=== PATIENT | female | born 1980 | race American Indian/Alaskan Native ===

== ENCOUNTER 2018-10-13 13:38 | Emergency (ER) | payer MEDICAID, OTHER ==
[~2018-10-13] VITALS: Ht 167.6 cm; Wt 80.0 kg
[~2018-10-13 13:38] MED LIST: ORPH100T2 PO
[2018-10-13 14:15] LABS: CLARITY,URINE CLOUDY (Clear); COLOR,URINE YELLOW (Yellow); GLUCOSE, URINE NEGATIVE (Neg); KETONES,URINE NEGATIVE (Neg); LEUKOCYTE ESTERASE ,URINE TRACE (Neg); NITRITES, URINE POSITIVE (Neg); OCCULT BLOOD,URINE SMALL (Neg); PROTEIN,URINE TRACE mg/dl (Neg); UA COLLECTION TYPE CLN CATCH MIDSTREAM
[2018-10-13 14:17] LABS: URINE HCG NEGATIVE (NEG)
[2018-10-13 14:22] LABS: HYALINE CASTS 0-3 /LPF (NEGATIVE); SQUAMOUS EPITHELIAL CELL,UR MODERATE /LPF (FEW)
[2018-10-13 14:23] LABS: BACTERIA,URINE 4+ /HPF (Neg); RBC,URINE 0-2 /HPF (0-2); WBC,URINE 20-30 /HPF (0-4)
[2018-10-13 14:41] VITALS: BP 110/86
[2018-10-13 15:29] LABS: BASOPHILS % (AUTO) 0.4 % (0-1); EOSINOPHILS # (AUTO) 0.1 X10'3 (0-0.9); EOSINOPHILS % (AUTO) 1.9 % (0-6); HEMATOCRIT 46.7 % (35.0-45.0); HEMOGLOBIN 15.7 g/dl (12.0-16.0); LYMPHOCYTES # (AUTO) 1.4 X10'3 (1.1-4.8); LYMPHOCYTES % (AUTO) 20.6 % (21-51); MEAN CORPUSCULAR HEMOGLOBIN 31.6 PG (27.0-31.0); MEAN CORPUSCULAR HGB CONC 33.6 g/dL (33.0-36.5); MEAN CORPUSCULAR VOLUME 94.1 FL (78-98); MEAN PLATELET VOLUME 7.7 FL (7.4-10.4); MONOCYTES # (AUTO) 0.4 X10'3 (0-0.9); NEUTROPHILS % (AUTO) 72.1 % (42-75); PLATELET COUNT 235 X10'3 (140-440); RED BLOOD COUNT 4.97 X10'6 (4.20-5.60); RED CELL DISTRIBUTION WIDTH 12.8 % (11.5-14.5)
[2018-10-13 15:54] LABS: ALANINE AMINOTRANSFERASE 67 U/L (12-78); ALBUMIN 3.9 G/DL (3.4-5.0); ALBUMIN/GLOBULIN RATIO 0.9 (1.1-1.5); ALKALINE PHOSPHATASE 81 IU/L (46-116); ANION GAP 6 (8-16); ASPARTATE AMINO TRANSFERASE 26 U/L (10-37); BILIRUBIN,TOTAL 0.4 MG/DL (0.1-1.0); BLOOD UREA NITROGEN 17 MG/DL (7-18); BUN/CREATININE RATIO 17.3 (6.6-38.0); CALCIUM 9.5 MG/DL (8.5-10.1); CHLORIDE 103 MMOL/L (99-107); CREATININE 0.98 MG/DL (0.40-0.90); GLUCOSE 93 MG/DL (70-104); POTASSIUM 3.7 MMOL/L (3.5-5.1); SODIUM 137 MMOL/L (135-145); TOTAL CARBON DIOXIDE 27.6 MMOL/L (24-32); TOTAL PROTEIN 8.3 G/DL (6.4-8.2); eGFR 64 ML/MIN
[2018-10-13] MEDS ORDERED: SULF1TAB49 PO (16:05)
--- NOTE | 2018-10-13 16:36 | NUR ---
ULTRASOUND TO PT ROOM, PT LEFT A NOTE SAID SHE WENT TO BUS STOP TO SMOKE. PT NOT AT BUS STOP. TRIED TO CALL PHONE NUMBER, EM REPORTS NUMBER NOT WORKING.
== END 2018-10-13 16:43 | disposition left against medical advice (07) ==
LOC: ER 13:39
DX: N93.9 Abnormal uterine and vaginal bleeding, unspecified (principal); N39.0 Urinary tract infection, site not specified; Z88.0 Allergy status to penicillin; Z79.899 Other long term (current) drug therapy
CPT/HCPCS: 36415; 80053; 81001; 81025; 85025; 87077; 87088; 87186; 99284

== ENCOUNTER 2018-10-25 14:11 | Emergency (ER) | payer MEDICAID, OTHER ==
[~2018-10-25] VITALS: Ht 167.6 cm; Wt 68.0 kg
[2018-10-25 14:13] VITALS: BP 135/71
[2018-10-25] MEDS ORDERED: ketorolac trometh inj. 60 MG/2 ML VIAL IM ONE (14:25)
[2018-10-25] MEDS ORDERED: NAPR-56 PO (14:26)
[2018-10-25] MEDS ORDERED: CEPH-571 PO (14:26)
== END 2018-10-25 14:39 | disposition home or self-care (01) ==
LOC: ER 14:12
DX: S70.362A Insect bite (nonvenomous), left thigh, initial encounter (principal); L03.116 Cellulitis of left lower limb; M54.6 Pain in thoracic spine; F17.200 Nicotine dependence, unspecified, uncomplicated; Z88.0 Allergy status to penicillin; Z79.2 Long term (current) use of antibiotics; Z79.899 Other long term (current) drug therapy; W57.XXXA Bitten or stung by nonvenomous insect and other nonvenomous arthropods, initial encounter; Y93.89 Activity, other specified; Y92.89 Other specified places as the place of occurrence of the external cause; Y99.8 Other external cause status
CPT/HCPCS: 96372; 99283; J1885

== ENCOUNTER 2018-11-03 16:51 | Emergency (ER) | payer SELFPAY ==
[~2018-11-03] VITALS: Ht 167.6 cm; Wt 77.0 kg
[~2018-11-03 16:51] MED LIST changes: +CEPH-571 PO; +NAPR-56 PO
[2018-11-03 16:56] VITALS: BP 133/76
[2018-11-03 17:52] LABS: CLARITY,URINE CLOUDY (Clear); COLOR,URINE YELLOW (Yellow); GLUCOSE, URINE NEGATIVE (Neg); KETONES,URINE NEGATIVE (Neg); LEUKOCYTE ESTERASE ,URINE NEGATIVE (Neg); NITRITES, URINE NEGATIVE (Neg); OCCULT BLOOD,URINE NEGATIVE (Neg); PH,URINE 5.5 (4.8-8.0); PROTEIN,URINE NEGATIVE (Neg); URINE HCG NEGATIVE (NEG)
[2018-11-03 17:53] LABS: UA COLLECTION TYPE CLN CATCH MIDSTREAM
[2018-11-03 18:08] LABS: BACTERIA,URINE 1+ /HPF (Neg); HYALINE CASTS 0-3 /LPF (NEGATIVE); RBC,URINE 0-2 /HPF (0-2); SQUAMOUS EPITHELIAL CELL,UR MODERATE /LPF (FEW)
== END 2018-11-03 18:23 | disposition left against medical advice (07) ==
LOC: ER 16:52
DX: R30.0 Dysuria (principal); Z88.0 Allergy status to penicillin
CPT/HCPCS: 81001; 81025; 87088; 99283

== ENCOUNTER 2019-03-26 13:41 | Emergency (ER) | payer OTHER ==
[~2019-03-26] VITALS: Ht 167.6 cm; Wt 80.0 kg
[~2019-03-26 13:41] MED LIST changes: -NAPR-56 PO
[2019-03-26 13:52] VITALS: BP 159/61
[2019-03-26 14:19] LABS: BASOPHILS # (AUTO) 0.1 X10'3 (0-0.2); BASOPHILS % (AUTO) 1.5 % (0-1); EOSINOPHILS # (AUTO) 0.1 X10'3 (0-0.9); EOSINOPHILS % (AUTO) 2.5 % (0-6); HEMATOCRIT 45.8 % (35.0-45.0); HEMOGLOBIN 15.4 g/dl (12.0-16.0); LYMPHOCYTES # (AUTO) 1.9 X10'3 (1.1-4.8); LYMPHOCYTES % (AUTO) 31.6 % (21-51); MEAN CORPUSCULAR HEMOGLOBIN 30.9 PG (27.0-31.0); MEAN CORPUSCULAR HGB CONC 33.6 g/dL (33.0-36.5); MEAN CORPUSCULAR VOLUME 91.8 FL (78-98); MEAN PLATELET VOLUME 7.8 FL (7.4-10.4); MONOCYTES # (AUTO) 0.4 X10'3 (0-0.9); MONOCYTES % (AUTO) 6.7 % (2-12); NEUTROPHILS # (AUTO) 3.4 X10'3 (1.8-7.7); NEUTROPHILS % (AUTO) 57.7 % (42-75); PLATELET COUNT 248 X10'3 (140-440); RED BLOOD COUNT 4.98 X10'6 (4.20-5.60); RED CELL DISTRIBUTION WIDTH 12.6 % (11.5-14.5); WHITE BLOOD COUNT 5.9 X10'3 (4.5-11.0)
[2019-03-26 14:43] LABS: ALANINE AMINOTRANSFERASE 73 U/L (12-78); ALBUMIN 3.9 G/DL (3.4-5.0); ALKALINE PHOSPHATASE 82 IU/L (46-116); ANION GAP 8 (8-16); ASPARTATE AMINO TRANSFERASE 27 U/L (10-37); BILIRUBIN,TOTAL 0.4 MG/DL (0.1-1.0); BLOOD UREA NITROGEN 17 MG/DL (7-18); BUN/CREATININE RATIO 17.7 (6.6-38.0); CALCIUM 9.1 MG/DL (8.5-10.1); CHLORIDE 105 MMOL/L (99-107); CREATININE 0.96 MG/DL (0.40-0.90); GLUCOSE 127 MG/DL (70-104); LIPASE 99 U/L (73-393); POTASSIUM 3.7 MMOL/L (3.5-5.1); SODIUM 140 MMOL/L (135-145); TOTAL CARBON DIOXIDE 26.6 MMOL/L (24-32); TOTAL PROTEIN 7.8 G/DL (6.4-8.2); eGFR 65 ML/MIN
[2019-03-26] MEDS ORDERED: ketorolac tromethamine 15mg/ml inj. IM ONE (15:30)
[2019-03-26] MEDS ORDERED: CYCL-1 PO (15:33)
[2019-03-26] MEDS ORDERED: ONDA4TAB6 PO (15:33)
[2019-03-26] MEDS ORDERED: IBUP-1984 PO (15:33)
== END 2019-03-26 16:00 | disposition home or self-care (01) ==
LOC: ER 13:41
DX: M54.5 Low back pain (principal); M54.6 Pain in thoracic spine; R10.84 Generalized abdominal pain; G89.29 Other chronic pain; F15.90 Other stimulant use, unspecified, uncomplicated; Z88.0 Allergy status to penicillin; W18.09XA Striking against other object with subsequent fall, initial encounter; Y93.89 Activity, other specified; Y92.89 Other specified places as the place of occurrence of the external cause; Y99.9 Unspecified external cause status
CPT/HCPCS: 36415; 80053; 83690; 85025; 96372; 99283; J1885

== ENCOUNTER 2020-03-30 02:44 | Emergency (ER) | payer SELFPAY ==
[~2020-03-30 02:44] MED LIST changes: +CYCL-1 PO; +ONDA4TAB6 PO
== END 2020-03-30 03:18 | disposition left against medical advice (07) ==
LOC: ER 02:44
DX: Z53.21 Procedure and treatment not carried out due to patient leaving prior to being seen by health care provider (principal)

== ENCOUNTER 2020-10-28 22:05 | Emergency (ER) | payer OTHER ==
[~2020-10-28] VITALS: Ht 167.6 cm; Wt 75.0 kg
[2020-10-28 22:20] VITALS: BP 155/97
[2020-10-28] MEDS ORDERED: ALBU18HF2 INH (23:23)
[2020-10-28] MEDS ORDERED: DOXY100C43 PO (23:23)
[2020-10-28] MEDS ORDERED: PRED20TA PO (23:23)
--- NOTE | 2020-10-29 00:42 | NUR ---
pt seen and treatedby prior to nurse assessment and medical hx . pt discharged home , when attempted to discharge pt . pt not in rap not in lobby not in parking lot checked three timnes pt left without dischrge orders
== END 2020-10-29 00:58 | disposition home or self-care (01) ==
LOC: ER 22:06
DX: J20.9 Acute bronchitis, unspecified (principal); J06.9 Acute upper respiratory infection, unspecified; I10 Essential (primary) hypertension; J45.909 Unspecified asthma, uncomplicated; F17.210 Nicotine dependence, cigarettes, uncomplicated; F15.90 Other stimulant use, unspecified, uncomplicated; Z20.822 Contact with and (suspected) exposure to COVID-19; Z86.19 Personal history of other infectious and parasitic diseases; Z88.0 Allergy status to penicillin
CPT/HCPCS: 87635; 99283; 99406; C9803

== ENCOUNTER 2021-06-30 14:58 | Emergency (ER) | payer SELFPAY ==
[~2021-06-30] VITALS: Ht 167.6 cm; Wt 84.2 kg
[~2021-06-30 14:58] MED LIST changes: +ALBU18HF2 INH
[2021-06-30] MEDS ORDERED: gentamicin inj 350 MG in normal saline 100ml IV soln 100 ML IV STA (15:54)
[2021-06-30] MEDS ORDERED: probenecid 500mg tablet PO ONE (15:55)
[2021-06-30] MEDS ORDERED: cefepime 1GM/NS ADD-VANTAGE 100 ML IV SCH (16:00)
[2021-06-30] MEDS ORDERED: ceFAZolin/D5W- 1GM premix 50 ML IV SCH (16:00)
[2021-06-30 17:22] LABS: BASOPHILS # (AUTO) 0.1 X10'3 (0-0.2); BASOPHILS % (AUTO) 1.4 % (0-1); EOSINOPHILS # (AUTO) 0.1 X10'3 (0-0.9); EOSINOPHILS % (AUTO) 1.5 % (0-6); HEMATOCRIT 42.4 % (35.0-45.0); HEMOGLOBIN 14.2 g/dl (12.0-16.0); LYMPHOCYTES # (AUTO) 2.3 X10'3 (1.1-4.8); LYMPHOCYTES % (AUTO) 26.2 % (21-51); MEAN CORPUSCULAR HEMOGLOBIN 30.6 PG (27.0-31.0); MEAN CORPUSCULAR HGB CONC 33.6 g/dL (33.0-36.5); MEAN PLATELET VOLUME 7.8 FL (7.4-10.4); MONOCYTES # (AUTO) 0.6 X10'3 (0-0.9); MONOCYTES % (AUTO) 6.2 % (2-12); NEUTROPHILS # (AUTO) 5.8 X10'3 (1.8-7.7); NEUTROPHILS % (AUTO) 64.7 % (42-75); PLATELET COUNT 280 X10'3 (140-440); RED BLOOD COUNT 4.66 X10'6 (4.20-5.60); RED CELL DISTRIBUTION WIDTH 12.6 % (11.5-14.5)
[2021-06-30 17:37] LABS: ALANINE AMINOTRANSFERASE 58 U/L (12-78); ALBUMIN 3.4 G/DL (3.4-5.0); ALBUMIN/GLOBULIN RATIO 0.8 (1.1-1.5); ALKALINE PHOSPHATASE 83 IU/L (46-116); ANION GAP 4 (8-16); ASPARTATE AMINO TRANSFERASE 24 U/L (10-37); BILIRUBIN,TOTAL 0.4 MG/DL (0.1-1.0); BLOOD UREA NITROGEN 12 MG/DL (7-18); BUN/CREATININE RATIO 17.9 (6.6-38.0); CALCIUM 9.1 MG/DL (8.5-10.1); CHLORIDE 103 MMOL/L (99-107); CREATININE 0.67 MG/DL (0.40-0.90); GLUCOSE 129 MG/DL (70-104); SODIUM 135 MMOL/L (135-145); TOTAL CARBON DIOXIDE 27.7 MMOL/L (24-32); TOTAL PROTEIN 7.7 G/DL (6.4-8.2); eGFR > 90 ML/MIN
[2021-06-30] MEDS ORDERED: CEPH-585 PO (18:14)
[2021-06-30] MEDS ORDERED: SULF1TAB45 PO (18:14)
[2021-06-30] MEDS ORDERED: sulfamethoxazole/trimethoprim DS (800/160mg) tablet PO ONE (18:15)
[2021-06-30 18:53] VITALS: BP 147/86
== END 2021-06-30 18:54 | disposition home or self-care (01) ==
LOC: ER 14:58
DX: L03.114 Cellulitis of left upper limb (principal); G89.29 Other chronic pain; M54.9 Dorsalgia, unspecified; F17.210 Nicotine dependence, cigarettes, uncomplicated; Z88.0 Allergy status to penicillin; Z79.899 Other long term (current) drug therapy
CPT/HCPCS: 36415; 80053; 85025; 96365; 99284; J1580; J3490

== ENCOUNTER 2021-07-01 20:40 | Emergency (ER) | payer SELFPAY ==
[~2021-07-01] VITALS: Ht 167.6 cm; Wt 72.7 kg
[~2021-07-01 20:40] MED LIST changes: +CEPH-585 PO; +SULF1TAB45 PO
[2021-07-01 20:48] VITALS: BP 139/90
[2021-07-01 21:38] LABS: BASOPHILS # (AUTO) 0.1 X10'3 (0-0.2); BASOPHILS % (AUTO) 0.9 % (0-1); EOSINOPHILS # (AUTO) 0.2 X10'3 (0-0.9); EOSINOPHILS % (AUTO) 2.6 % (0-6); HEMATOCRIT 45.5 % (35.0-45.0); HEMOGLOBIN 15.2 g/dl (12.0-16.0); LYMPHOCYTES # (AUTO) 2.6 X10'3 (1.1-4.8); LYMPHOCYTES % (AUTO) 28.2 % (21-51); MEAN CORPUSCULAR HEMOGLOBIN 30.9 PG (27.0-31.0); MEAN CORPUSCULAR HGB CONC 33.4 g/dL (33.0-36.5); MEAN CORPUSCULAR VOLUME 92.6 FL (78-98); MEAN PLATELET VOLUME 7.2 FL (7.4-10.4); MONOCYTES # (AUTO) 0.5 X10'3 (0-0.9); MONOCYTES % (AUTO) 5.7 % (2-12); NEUTROPHILS # (AUTO) 5.7 X10'3 (1.8-7.7); NEUTROPHILS % (AUTO) 62.6 % (42-75); PLATELET COUNT 274 X10'3 (140-440); RED BLOOD COUNT 4.91 X10'6 (4.20-5.60); RED CELL DISTRIBUTION WIDTH 12.6 % (11.5-14.5); WHITE BLOOD COUNT 9.2 X10'3 (4.5-11.0)
[2021-07-01 21:55] LABS: ALANINE AMINOTRANSFERASE 57 U/L (12-78); ALBUMIN 3.3 G/DL (3.4-5.0); ALBUMIN/GLOBULIN RATIO 0.7 (1.1-1.5); ALKALINE PHOSPHATASE 113 IU/L (46-116); ANION GAP 4 (8-16); ASPARTATE AMINO TRANSFERASE 22 U/L (10-37); BILIRUBIN,TOTAL 0.3 MG/DL (0.1-1.0); BLOOD UREA NITROGEN 14 MG/DL (7-18); BUN/CREATININE RATIO 16.5 (6.6-38.0); CALCIUM 9.5 MG/DL (8.5-10.1); CHLORIDE 102 MMOL/L (99-107); CREATININE 0.85 MG/DL (0.40-0.90); GLUCOSE 144 MG/DL (70-104); POTASSIUM 4.1 MMOL/L (3.5-5.1); SODIUM 135 MMOL/L (135-145); TOTAL CARBON DIOXIDE 28.8 MMOL/L (24-32); TOTAL PROTEIN 7.9 G/DL (6.4-8.2); eGFR 74 ML/MIN
== END 2021-07-01 23:00 | disposition left against medical advice (07) ==
LOC: ER 20:41
DX: M79.602 Pain in left arm (principal); Z53.21 Procedure and treatment not carried out due to patient leaving prior to being seen by health care provider
CPT/HCPCS: 36415; 80053; 83605; 84145; 84484; 85025; 87040